=== PATIENT | female | born 1970 | race Caucasian/White ===

== ENCOUNTER 2022-04-23 09:24 | Day surgery (SDC) | payer OTHER ==
[~2022-04-23 09:24] MED LIST: Lactated Ringers 1,000 ML IV SCH
[2022-04-23] MEDS ORDERED: Midazolam 1 MG/ML 2 ML SDV ONE (10:21)
[2022-04-23] MEDS ORDERED: fentaNYL 100 MCG/2 ML SDV ONE (10:21)
[2022-04-23] MEDS ORDERED: Propofol 200 MG/20 ML SDV ONE ×2 (10:21→11:11)
[2022-04-23] MEDS ORDERED: Lactated Ringers 1,000 ML IV SCH (11:45)
[2022-04-23 12:05] VITALS: BP 107/67; PULSE 78
== END 2022-04-23 12:25 | disposition home or self-care (01) ==
LOC: MW.SDS 09:24
PROVIDERS: ATTEND Surgery
DX: K21.00 Gastro-esophageal reflux disease with esophagitis, without bleeding (principal); K29.50 Unspecified chronic gastritis without bleeding; K44.9 Diaphragmatic hernia without obstruction or gangrene; G43.909 Migraine, unspecified, not intractable, without status migrainosus; M19.90 Unspecified osteoarthritis, unspecified site; J30.9 Allergic rhinitis, unspecified; Z88.2 Allergy status to sulfonamides; Z88.0 Allergy status to penicillin; Z88.8 Allergy status to other drugs, medicaments and biological substances; Z91.030 Bee allergy status; Z79.899 Other long term (current) drug therapy; Z98.890 Other specified postprocedural states; Z68.36 Body mass index [BMI] 36.0-36.9, adult
CPT/HCPCS: 43239; 45378; 81025; J2250; J2704; J3010; J7120